=== PATIENT | female | born 1990 | race African-American/Black ===

== ENCOUNTER 2019-11-19 21:00 | Emergency (ER) | payer MEDICAID ==
[~2019-11-19] VITALS: Ht 175.3 cm; Wt 66.6 kg
[2019-11-19 21:12] VITALS: BP 117/78
[2019-11-19] MEDS ORDERED: KETOROLAC 30 MG/1 ML ONE (21:37)
[2019-11-19] MEDS ORDERED: KETOROLAC 30 MG/1 ML IM ONE (22:00)
== END 2019-11-19 21:43 | disposition home or self-care (01) ==
LOC: ED 21:40
DX: K02.9 Dental caries, unspecified (principal)
CPT/HCPCS: 96372; 99283; J1885